=== PATIENT | male | born 1960 | race African-American/Black ===

== ENCOUNTER 2020-11-25 03:09 | Emergency (ER) | payer BC ==
[2020-11-25] MEDS ORDERED: Sodium Chloride 0.9% 1,000 ML ONE (03:38)
[2020-11-25 03:51] LABS: #Basophils 0.1 thou/uL (0.0-0.2); #Eosinphils 0.2 thou/uL (0.0-0.7); #Lymphocytes 2.1 thou/uL (1.20-3.40); #Monocytes 0.7 thou/uL (0.11-0.59); #Neutrophils 3.4 thou/uL (1.40-6.50); %Basophils 1.7 % (0.0-1.0); %Eosinophils 2.7 % (0.0-10.0); %Lymphocytes 32.9 % (21.0-51.0); %Monocytes 10.3 % (0.0-10.0); %Neutrophils 52.3 % (42.0-75.0); Hemoglobin 15.3 g/dL (14.0-18.0); Mean Corpuscular HGB CONC 32.1 g/dL (32.0-36.0); Mean Corpuscular Hemoglobin 29.6 pg (27.0-31.0); Mean Corpuscular Volume 92.4 fL (78.0-98.0); Platelet Count 182 thou/uL (130-400); RBC Distribution Width 12.1 % (11.5-14.5); Red Blood Cell (RBC) Count 5.17 mill/uL (4.70-6.10); White Blood Cell (WBC) Count 6.5 thou/uL (4.8-10.8)
[2020-11-25 04:04] LABS: ALT (SGPT) 34 U/L (8-55); AST (SGOT) 20 U/L (5-34); Alkaline Phosphatase 72 U/L (40-110); Anion Gap 14 mmol/L (10-20); BUN (Urea Nitrogen) 13 mg/dL (8.4-25.7); Bilirubin, Total 0.3 mg/dL (0.2-1.2); Calc. Creatinine Clearance 0 mL/min (70-130); Calcium 8.6 mg/dL (7.8-10.44); Carbon Dioxide 24 mmol/L (22-29); Chloride 105 mmol/L (98-107); Globulin 3.2 g/dL (2.4-3.5); Glucose 108 mg/dL (70-105); Magnesium 2.1 mg/dL (1.6-2.6); Potassium 4.2 mmol/L (3.5-5.1); Protein, Total 7.2 g/dL (6.0-8.3); Sodium 139 mmol/L (136-145)
[2020-11-25 04:15] LABS: Base Excess-Venous -0.1 mmol/L (-2.0 to 3.0); Bicarbonate (HCO3v) 23.9 mmol/L (22.0-28.0); CO2 Tension (PvCO2) 36.5 mmHg (40.0-50.0); Calcium, Ionized 1.03 mmol/L (1.15-1.33); Chloride 107 mmol/L (98-107); Hemoglobin - Calc 15.6 g/dL (14.0-18.0); Potassium 4.2 mmol/L (3.5-5.1); Sodium 140 mmol/L (138-145); T. Carbon Dioxide 25.1 mmol/L (22.0-28.0); vO2 Saturation-calc 99.8 % (60.0-85.0)
--- NOTE | 2020-11-25 07:30 | CT ---
PRELIMINARY REPORT/[facility]/EMERGENCY AFTER HOURS PROCEDURE EXAM: CT Head Without Intravenous Contrast. CLINICAL HISTORY: DIZZY/HEADACHE TECHNIQUE: Axial computed tomography images of the head/brain without intravenous contrast. COMPARISON: None provided. FINDINGS: BRAIN: No acute intraparenchymal hemorrhage. No mass lesion. No CT evidence for acute territorial infarct. N o midline shift or extra-axial collection. VENTRICLES: No hydrocephalus. ORBITS: The orbits are unremarkable. SINUSES AND MASTOIDS: The paranasal sinuses and mastoid air cells are clear. SOFT TISSUES: No significant facial or scalp soft tissue swelling evident. No radiopaque foreign body is seen. BONES: No acute skull fracture. IMPRESSION: No acute intracranial abnormality. Consider MRI follow-up for worsening/persistent symptoms. ELECTRONICALLY SIGNED BY: Luis Antonio Mcbride MD Nov 25, 2020 4:13:04 AM [facility] This report is intended for review by the ordering physician only, in accordance of law. If you recei ve this report in error, please call [facility] at [phone]. FINAL REPORT Final interpretation Head CT without contrast: 11/25/2020 COMPARISON: None. HISTORY: Headache and dizziness with pain. FINDINGS: I agree with the preliminary report. The visualized paranasal sinuses and mastoid air cells demonstrate no acute findings. There is no displaced calvarial fracture, intracranial hemorrhage, midline shift, or mass effect. IMPRESSION: No acute findings. Code QA Transcribed Date/Time: 11/25/2020 7:55 AM
== END 2020-11-25 04:35 | disposition short-term general hospital (02) ==
LOC: NAV ERS 03:09
DX: R42 Dizziness and giddiness (principal); R51.9 Headache, unspecified
CPT/HCPCS: 70450; 80053; 82330; 82803; 83605; 83735; 84484; 85025; 93005; 94760; J7050